=== PATIENT | male | born 1935 | race Caucasian/White ===

== ENCOUNTER → 2017-02-14 | Outpatient (CLI) | payer MEDICARE, BC | END | disposition home or self-care (01) | LOC: HKI 10:22 | PROVIDERS: ATTEND Orthopaedic Surgery | DX: T84.091A Other mechanical complication of internal left hip prosthesis, initial encounter (principal); T84.090A Other mechanical complication of internal right hip prosthesis, initial encounter; Z96.643 Presence of artificial hip joint, bilateral | CPT/HCPCS: G0463 ==

== ENCOUNTER → 2017-03-05 | Outpatient (CLI) | payer MEDICARE, BC | END | disposition home or self-care (01) | LOC: HKI 09:24 | PROVIDERS: ATTEND Orthopaedic Surgery | DX: T84.091A Other mechanical complication of internal left hip prosthesis, initial encounter (principal); T84.090A Other mechanical complication of internal right hip prosthesis, initial encounter; Z96.643 Presence of artificial hip joint, bilateral | CPT/HCPCS: G0463 ==